=== PATIENT | male | born 1960 | race African-American/Black ===

== ENCOUNTER 2025-09-04 09:42 | Outpatient (REF) | payer MEDICARE, OTHER, SELFPAY ==
[2025-09-04 13:09] LABS: MANUAL DIFF FLAG NO
[2025-09-04 13:12] LABS: Hematocrit 44.3 % (42.0-52.0); Hemoglobin 15.1 g/dl (14.0-18.0); Imm Gran Abs Auto 0.01 X10*3/uL (0.00-0.03); Imm Gran Pct Auto 0.2 % (0.0-0.4); Lymphocytes Absolute Auto 2.0 X10*3/uL (1.2-4.9); Mean Corpuscular HGB Conc 34.1 g/dl (31.0-36.0); Mean Corpuscular Hemoglobin 28.3 pg (27.0-33.0); Mean Corpuscular Volume 83.1 fL (80.0-98.0); NRBC Abs Auto 0.000 X10*3/uL (0.0-0.012); NRBC Pct Auto 0.0 /100WBC (0.0-0.2); Platelet Count 263 X10*3/uL (160-400); Red Blood Count 5.33 X10*6/uL (4.60-5.80); White Blood Count 5.2 X10*3/uL (4.8-10.8)
[2025-09-04 13:19] LABS: Appearance Urine Clear; Glucose Urine UA >=1000 mg/dL (Negative); PH 7.0 (5.0-9.0); Specific Gravity - Urine >= 1.030 (1.005-1.025); UMIC TRIGGER UACC YES
[2025-09-04 13:45] LABS: Alanine Aminotransferase 31 U/L (0-40); Albumin Level 5.0 g/dL (3.5-5.0); Alkaline Phosphatase 66 U/L (39-117); Anion Gap 12 (12-20); Aspartate Amino Transferase 21 U/L (5-37); Blood Urea Nitrogen 12 mg/dL (9-16); Calcium 9.8 mg/dL (8.4-10.2); Carbon Dioxide 28 mmol/L (22-29); Chloride 101 mmol/L (96-108); Cholesterol 203 mg/dL (<200); Estimated Glomerular Filt Rate > 60; HDL Cholesterol 47 mg/dL (>40); Magnesium 2.0 mg/dL (1.6-2.6); Potassium 4.3 mmol/L (3.3-5.1); Sodium 137 mmol/L (135-145); Total Protein 7.9 g/dL (6.5-8.0); Triglycerides 120 mg/dL (<150)
[2025-09-04 13:58] LABS: Folate 12.9 ng/mL (> or = 4.0); Vitamin B12 1016 pg/mL (200-900)
[2025-09-04 14:14] LABS: Microalbum/Creatinine Ratio Ur 21.4 ug/mg cr (<30)
[2025-09-05 13:04] LABS: HBS Num1 0.93 mIU/mL (0-7.99); HBsAGNum1 0.47 S/CO (0.00-0.99); HIV Num 1 0.06 S/CO (0.00-0.99); Hepatitis B Surface Antigen Negative (Negative); ~HepC Num1 0.07 S/CO (0.00-0.79); ~Hepatitis B Surface Antibody NONREACTIVE (Nonreactive); ~Hepatitis C Antibody Nonreactive (Nonreactive)
[2025-09-08 12:28] LABS: VITAMIN D (1,25 OH) D3 51 pg/mL; Vit D (1,25-Dihydroxy) Total 51 pg/mL (18-72); Vitamin D (1,25 OH) D2 <8 pg/mL
== END 2025-09-04 09:43 | disposition home or self-care (01) ==
LOC: HO.HKASLDS 09:42
PROVIDERS: PCP Student in an Organized Health Care Education/Training Program; Visit Provider Student in an Organized Health Care Education/Training Program
DX: Z13.9 Encounter for screening, unspecified (principal); I10 Essential (primary) hypertension; R03.0 Elevated blood-pressure reading, without diagnosis of hypertension; Z79.899 Other long term (current) drug therapy
CPT/HCPCS: 36415; 80053; 80061; 81001; 81003; 82043; 82570; 82607; 82652; 82746; 83036; 83735; 84443; 85025; 86706; 86803; 87340; 87389; 99202

== ENCOUNTER 2025-09-04 09:42 | Outpatient (AMB) | payer MEDICARE, OTHER, SELFPAY ==
--- NOTE | 2025-09-04 09:26 | MHC.PC.OV ---
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 History of Present Illness The patient is a 65-year-old male presenting with hypertension management to proceed with cataract surgery. Essential Hypertension: The patient reports a history of elevated blood pressure, first noted during a preoperative physical examination for cataract surgery two weeks ago. Despite receiving high doses of antihypertensive medication during surgery, his blood pressure remained elevated, leading to the postponement of the second eye surgery. He has been prescribed amlodipine 5 mg, which was deemed ineffective, and is now being transitioned to a combination of amlodipine 10 mg and valsartan 160 mg. The patient monitors his blood pressure twice daily, noting higher readings in the evening. 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 Cataract: The patient underwent cataract surgery on the left eye two weeks ago and plans to have the right eye operated on once his blood pressure is controlled. The surgery was delayed due to elevated blood pressure, and he currently experiences differing visual acuity between the eyes. 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 - Substance Use: Denies smoking, drinks alcohol very lightly. Family History: - Denies family history of colon cancer. Review of Systems - Cardiovascular: Denies headaches, dizziness, or dyspnea. 10-point ROS reviewed and negative except as noted in HPI Past Medical History - History of hypertension Health Maintenance - Colon cancer screening discussed with options for colonoscopy or Cologuard test. Physical Exam General: Well-appearing, in no acute distress. Vital signs: Blood pressure is very elevated today at 194/102. HEENT: Normocephalic, atraumatic. PERRLA, EOMI. Conjunctiva clear, sclera anicteric. Oropharynx clear, mucous membranes moist. TMs intact bilaterally. Neck: Supple, no lymphadenopathy, no thyromegaly, no JVD or carotid bruits. Cardiovascular: RRR, normal S1/S2, no murmurs, rubs, or gallops. Peripheral pulses 2+ and symmetric. No edema. Respiratory: Lungs clear to auscultation bilaterally, no wheezes, rales, or rhonchi. Normal effort. Abdomen: Soft, non-tender, non-distended. Normoactive bowel sounds. No hepatosplenomegaly, no masses. MSK: Full range of motion, no joint swelling or deformity. Normal gait. Skin: Warm, dry, intact. No rashes, lesions, or pallor. Neuro: Alert and oriented x3. Cranial nerves II-XII intact. Strength 5/5 throughout. Sensation intact. Reflexes 2+ symmetric. Normal coordination and gait. Psych: Appropriate mood and affect. Normal judgment and insight. Plan 1. Essential Hypertension - Initiate amlodipine 10 mg with valsartan 160 mg to manage blood pressure. - Conduct complete blood count, comprehensive metabolic panel, hemoglobin A1c, lipid panel, and other relevant tests to assess overall health and organ function. - Schedule an electrocardiogram to evaluate cardiac function and potential hypertensive effects on the heart. - Follow-up in two weeks to review test results and blood pressure log. 2. Cataract - Plan to proceed with right eye cataract surgery once blood pressure is controlled. Discussion Notes I discussed with the patient the need to control his blood pressure to proceed with the second cataract surgery. We reviewed the new medication regimen, including amlodipine and valsartan, and the importance of monitoring blood pressure at home. I explained the tests ordered to assess his overall health and the need for an electrocardiogram to evaluate cardiac function. We also discussed colon cancer screening options, and he opted for a colonoscopy. Patient Instructions - Take amlodipine 10 mg with valsartan 160 mg daily as prescribed. - Monitor blood pressure twice daily and record readings in a log. - Schedule and complete the recommended blood tests and electrocardiogram. - Follow up in two weeks to review test results and blood pressure log. - Seek immediate medical attention if experiencing dizziness, headaches, or chest pain. Medical Decision Making The patient's hypertension is poorly controlled, necessitating an adjustment in medication to a combination of amlodipine and valsartan. This approach aims to effectively lower blood pressure to enable the completion of cataract surgery. Diagnostic tests, including blood work and an electrocardiogram, are planned to evaluate the patient's overall health and cardiac function. The goal is to stabilize blood pressure and ensure the patient is fit for surgery, while also addressing preventative care with colon cancer screening. Total time spent caring for the patient today was 30 minutes. This includes time spent before the visit reviewing the chart, time spent documenting, and time spent reviewing laboratory results, diagnostic imaging, medications, performing a medically necessary evaluation, counseling on diagnoses, care coordination, ordering appropriate tests, ordering appropriate medications. FORMERLY [facility], [facility]1983 Medical History (Updated 09/04/25 @ 10:06 by Esdras Singh MD) Hypertension Family History (Updated 09/04/25 @ 09:52 by Elijah Snow MA) Father No problems noted. Mother High blood pressure Diabetes Social History Housing: House Patient Tobacco Use Status: Never used Tobacco service: Yes Current occupational status: retired Cognitive needs: No Hearing needs: No Vision needs: Yes (reading glasses) Questionnaire PHQ-9 Over the last 2 weeks, how often have you been bothered by any of the following problems? 1. Little interest or pleasure in doing things: not at all 2. Feeling down, depressed, or hopeless: not at all 3. Trouble falling or staying asleep, or sleeping too much: not at all 4. Feeling tired or having little energy: not at all 5. Poor appetite or overeating: not at all 6. Feeling bad about yourself - or that you are a failure or have let yourself or your family down: not at all 7. Trouble concentrating on things, such as reading the newspaper or watching television: not at all 8. Moving or speaking so slowly that other people could have noticed. Or the opposite - being so fidgety or restless that you have been moving around a lot more than usual: not at all 9. Thoughts that you would be better off or of hurting yourself in some way: not at all Total score: 0 Source: Developed by Drs. Delta London, Shayla Morris, Edwar Ashford and colleagues, with an educational doc from [employer]. Thrive Questionnaire Date Thrive assessed: 08/28/25 I am a: Patient What is your living situation today?: I have a steady place to live Within the past 12 months, did the food you bought not last and you didn't have the money to get more?: Never true Within the past 12 months, did you worry whether your food would run out before you got money to buy more?: Never true Do you have trouble paying for medicines?: No Do you have trouble getting transportation to medical appointments?: No Do you have trouble paying your heating and electricity bill?: No Do you have trouble taking care of your child, family member or friend?: No Do you have trouble with day-to-day activities such as bathing, preparing meals, shopping, managing finances, etc.?: No Are you currently unemployed and looking for a job?: No Are you interested in more education?: No THRIVE Score: 0 AUDIT C Alcohol Use Questionnaire (AUDIT-C) 1. How often do you have a drink containing alcohol?: Monthly or less 3. How often do you have six or more drinks on one occasion?: Never Total Score: 1 GISELE-7 AMB Questionnaire GISELE-7 Date GISELE - 7 assessed: 09/04/25 Feeling nervous, anxious, or on edge: 0 = Not at all Not being able to stop or control worryin = Not at all Worrying too much about different things: 0 = Not at all Trouble relaxin = Not at all Being so restless that it is hard to sit still: 0 = Not at all Becoming easily annoyed or irritable: 0 = Not at all Feeling afraid as if something awful might happen: 0 = Not at all Total GISEEL-7 score (0-4 normal; 5-9 mild; 10-14 moderate; 15-21 severe): 0 Source: Developed by Drs. Delta London, ShaylaEdwar Lockhart and colleagues, with an educational doc from [employer]. Physical exam (Primary Care) Tobacco/Smoking Status: Tobacco use Status Tobacco use date assessed 09/04/25 09/04/25 09:31 Patient Tobacco Use Status Never used Tobacco 09/04/25 09:31 Thrive Assessment: Date of Thrive Assessment Date Thrive assessed 08/28/25 09/04/25 09:27 Coding Level of Care Code New Pt Level 4 (42236) Diagnoses Hypertension I10 Elevated blood pressure reading R03.0 Assessment & Plan Assessment & Plan (1) Hypertension: Code(s): I10 - Essential (primary) hypertension Category: Medical (2) Elevated blood pressure reading: Code(s): R03.0 - Elevated blood-pressure reading, without diagnosis of hypertension Plan Orders: Orders Complete Blood Count Auto Diff Today Z13.9 - Encounter for screening, unspecified Hemoglobin A1c Today Z13.9 - Encounter for screening, unspecified Lipid Panel Today Z13.9 - Encounter for screening, unspecified Magnesium Today Z13.9 - Encounter for screening, unspecified Vitamin B12 and Folate Today Z13.9 - Encounter for screening, unspecified ECG 12 lead EKG Today I10 - Essential (primary) hypertension Comprehensive Met. Panel Today Z13.9 - Encounter for screening, unspecified Hepatitis B Surface Antibody Today Z13.9 - Encounter for screening, unspecified Hepatitis B Surface Antigen Today Z13.9 - Encounter for screening, unspecified Hepatitis C Antibody Today Z13.9 - Encounter for screening, unspecified HIV Ab/Ag Today Z13.9 - Encounter for screening, unspecified TSH reflex Free T4 Today Z13.9 - Encounter for screening, unspecified UA CC w/rflx Micro + Cult Today Z13.9 - Encounter for screening, unspecified Vitamin D 1,25 dihydroxy Today Z13.9 - Encounter for screening, unspecified Microalbumin, Random (w Creat) Today Z13.9 - Encounter for screening, unspecified Referrals Cologuard Test Z12.11 - Encounter for screening for malignant neoplasm of colon, Z12.12 - Encounter for screening for malignant neoplasm of rectum Medications: New amlodipine-valsartan 10-160 mg 1 tab PO DAILY 90 tabs 0RF
[2025-09-04 09:49] VITALS: BP 194/102; PULSE 80; RESP 16; TEMP 36.6; O2SAT 98; BMI 24.2
== END 2025-09-04 10:18 | disposition home or self-care (01) ==
LOC: HO.HMCFMS 09:43
PROVIDERS: Visit Provider Student in an Organized Health Care Education/Training Program
DX: I10 Essential (primary) hypertension (principal); R03.0 Elevated blood-pressure reading, without diagnosis of hypertension

== ENCOUNTER 2025-09-18 13:48 | Outpatient (AMB) | payer MEDICARE, OTHER, SELFPAY ==
[2025-09-18 13:50] VITALS: BP 174/93; PULSE 80; TEMP 36.7; O2SAT 98; BMI 24.3
--- NOTE | 2025-09-18 13:50 | A.OFFPC_ITS ---
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 Accompanied by: Self / Same As Patient Allergies No Known Allergies Allergy (Verified 09/18/25 13:51) Medication List - Last Reconciled 09/18/25 by Esdras Singh MD amlodipine-valsartan 10-160 mg 1 tab PO DAILY empagliflozin (Jardiance) 10 mg PO DAILY ketorolac 0.5% 1 drp ophthalmic (eye) BID metformin 1,000 mg PO BID rosuvastatin 20 mg PO DAILY Tobacco use date assessed: 09/18/25 Fall risk assessment: No Falls in past year Last assessed Fall Risk: 09/18/25 Dental Screening Dental Screen Date: 09/18/25 Did you have a dental visit in the last 12 months?: Yes Did you have a dental problem in the last 6 months where you did not have access to dental care?: No Was dental information given to patient?: Patient has dentist HPI HPI Comments History of Present Illness Details History of Present Illness The patient is a 65-year-old male presenting for a follow-up visit to review lab results. Type 2 diabetes mellitus: The patient was newly diagnosed with type 2 diabetes mellitus based on laboratory results showing a hemoglobin A1c of 11.3% and a random glucose of 286 mg/dL. Hyperlipidemia: Recent laboratory tests revealed a total cholesterol level of 203 mg/dL and an LDL cholesterol level of 132 mg/dL. Hypertension: The patient has a history of elevated blood pressure and monitors his readings at home. His self-reported home measurements have been variable, with readings of 155, 152, 137, 139, 143, 162, 167, and 140, though he has also observed lower unrecorded readings such as 111 and 117. Social History: - Nutrition: The patient will be referre d to a business information consultant to discuss dietary changes for managing type 2 diabetes. Diagnostic Results: - Complete Blood Count (CBC): Normal, wi th no evidence of anemia, infection, or platelet problems. - Comprehensive Metabolic Panel (CMP): S odium, potassium, and renal function were normal. - Random Glucose: 286 mg/dL. - Hemoglobin A1c: 11.3%. - Lipid Panel: Total cholesterol 203 mg/ dL, LDL cholesterol 132 mg/dL. - Vitamin D: Normal. - Vitamin B12: Elevated at 1,060 pg/mL. - Folate: Normal. - Thyroid function tests: Normal. - Urinalysis: Normal. - Infectious Disease Screen: Negative fo r Hepatitis B, Hepatitis C, and HIV. Past Medical History - Hypertension - Cataracts Health Maintenance - The patient was screened for diabetes, dyslipidemia, and infectious diseases (Hepatitis B, Hepatitis C, HIV). - Lifestyle changes were discussed for d iabetes management, and the patient will be referred to a business information consultant and a clinical nurse educator. - Cardiovascular disease risk reduction was discussed with the initiation of rosuvastatin for its cardioprotective benefits in patients with type 2 diabetes. [facility] Medical History (Updated 09/18/25 @ 13:56 by Esdras Singh MD) Hyperlipidemia Diabetes type 2 Hypertension Family History Father No problems noted. Mother High blood pressure Diabetes Social History Housing: House Patient Tobacco Use Status: Never used Tobacco service: Yes Current occupational status: retired Cognitive needs: No Hearing needs: No Vision needs: Yes (reading glasses) Questionnaire PHQ-9 Over the last 2 weeks, how often have you been bothered by any of the following problems? 1. Little interest or pleasure in doing things: not at all 2. Feeling down, depressed, or hopeless: not at all 3. Trouble falling or staying asleep, or sleeping too much: not at all 4. Feeling tired or having little energy: not at all 5. Poor appetite or overeating: not at all 6. Feeling bad about yourself - or that you are a failure or have let yourself or your family down: not at all 7. Trouble concentrating on things, such as reading the newspaper or watching television: not at all 8. Moving or speaking so slowly that other people could have noticed. Or the opposite - being so fidgety or restless that you have been moving around a lot more than usual: not at all 9. Thoughts that you would be better off or of hurting yourself in some way: not at all Total score: 0 Depression Screening Interpretation: Negative Depression Screening Done: Yes Source: Developed by Drs. Delta London, Shayla Morris, Edwar Ashford and colleagues, with an educational doc from [employer]. Thrive Questionnaire Date Thrive assessed: 09/18/25 I am a: Patient What is your living situation today?: I have a steady place to live Within the past 12 months, did the food you bought not last and you didn't have the money to get more?: Never true Within the past 12 months, did you worry whether your food would run out before you got money to buy more?: Never true Do you have trouble paying for medicines?: No Do you have trouble getting transportation to medical appointments?: No Do you have trouble paying your heating and electricity bill?: No Do you have trouble taking care of your child, family member or friend?: No Do you have trouble with day-to-day activities such as bathing, preparing meals, shopping, managing finances, etc.?: No Are you currently unemployed and looking for a job?: No Are you interested in more education?: No Please select the resources that you would like help with: None Currently or been in a relationship where the following occur: No concerns reported THRIVE Score: 0 AUDIT C Alcohol Use Questionnaire (AUDIT-C) 1. How often do you have a drink containing alcohol?: Monthly or less 3. How often do you have six or more drinks on one occasion?: Never Total Score: 1 GISELE-7 AMB Questionnaire GISELE-7 Date GISELE - 7 assessed: 09/18/25 Feeling nervous, anxious, or on edge: 0 = Not at all Not being able to stop or control worryin = Not at all Worrying too much about different things: 0 = Not at all Trouble relaxin = Not at all Being so restless that it is hard to sit still: 0 = Not at all Becoming easily annoyed or irritable: 0 = Not at all Feeling afraid as if something awful might happen: 0 = Not at all Total GISELE-7 score (0-4 normal; 5-9 mild; 10-14 moderate; 15-21 severe): 0 Source: Developed by Shayla Ballesteros, Edwar Ashford and colleagues, with an educational doc from [employer]. Review of Systems Narrative Review of Systems - Constitutional: Patient reports feeling well. - All other systems reviewed and are negative. 10-point ROS reviewed and negative except as noted in HPI Physical exam (Primary Care) Vital Signs: Last Vital Signs Temp 98.0 F 09/18/25 13:50 Pulse 80 09/18/25 13:50 BP 174/93 H 09/18/25 13:50 Pulse Ox 98 09/18/25 13:50 Oxygen Delivery Method Room Air 09/18/25 13:50 BMI result Body Mass Index 24.3 Tobacco/Smoking Status: Tobacco use Status Tobacco use date assessed 09/18/25 09/18/25 13:52 Patient Tobacco Use Status Never used Tobacco 09/18/25 13:52 PHQ-9: PHQ-9 Score PHQ-9: Total score 0 09/18/25 13:58 Depression Screening Interpretation: Negative Thrive Assessment: Date of Thrive Assessment Date Thrive assessed 09/18/25 09/18/25 13:52 Currently or been in a relationship where the following occur: No concerns reported Narrative Physical Exam General: Well-appearing, in no acute distress. Vital signs: Blood pressure elevated. HEENT: Normocephalic, atraumatic. PERRLA, EOMI. Conjunctiva clear, sclera anicte sangeeta. Oropharynx clear, mucous membranes moist. TMs intact bilaterally. Neck: Supple, no lymphadenopathy, no thyromegaly, no JVD or carotid bruits. Cardiovascular: RRR, normal S1/S2, no murmurs, rubs, or gallops. Peripheral pulses 2+ and symmetric. No edema. Respiratory: Lungs clear to auscultation bilaterally, no wheezes, rales, or rhonchi. Normal effort. Abdomen: Soft, non-tender, non-distended. Normoactive bowel sounds. No hepatosplenomegaly, no masses. MSK: Full range of motion, no joint swelling or deformity. Normal gait. Skin: Warm, dry, intact. No rashes, lesions, or pallor. Neuro: Alert and oriented x3. Cranial nerves II-XII intact. Strength 5/5 throughout. Sensation intact. Reflexes 2+ symmetric. Normal coordination and gait. Psych: Appropriate mood and affect. Normal judgment and insight. Office Procedures Flu Questionnaire Does the patient have a severe egg allergy?: No Does the patient have severe life threatening allergies?: No Does the patient have a fever or illness today?: No Has the patient ever had Guillain-[place] Syndrome?: No Has the patient ever had any past reaction to a flu shot?: No Immunizations Fluarix [id number] (PF) 45 mcg (15 mcg x 3)/0.5 mL IM syringe Performing Provider: Esdras Singh MD Performing Location: [facility] [place] [facility] Documented (not given) by: Pepper Lieberman CMA on 09/18/25 13:59 Reason Not Given: Patient Refused Coding Level of Care Code Est Pt Level 4 (69086) Diagnoses Hypertension I10 Diabetes type 2 E11.9 Hyperlipidemia E78.5 Assessment & Plan Assessment & Plan (1) Hypertension: Code(s): I10 - Essential (primary) hypertension Category: Medical (2) Diabetes type 2: Code(s): E11.9 - Type 2 diabetes mellitus without complications Category: Medical (3) Hyperlipidemia: Code(s): E78.5 - Hyperlipidemia, unspecified Category: Medical Plan Consent The treatment plan, including new medications for diabetes and cholesterol, was discussed with the patient. Potential side effects of metformin, such as nausea and bloating, were explained. The patient was advised to return if these side effects occur. The patient verbally agreed to the proposed treatment plan. Patient was informed and verbally consented to the use of an ambient scribe for clinic note documentation during this visit. Plan 1. Type 2 Diabetes Mellitus - Initiate metformin twice daily with food. - Initiate Jardiance once daily in the morning, starting at a low dose. - The current plan utilizes oral medications as a conservative first step instead of insulin, despite an A1c greater than 9%. - Patient was counseled on potential GI side effects of metformin and advised to follow up if they occur, at which time a switch to an extended-release formulation will be considered. - Referral to be placed for a business information consultant and a clinical nurse educator. - Repeat hemoglobin A1c in three months to assess response to treatment. 2. Hyperlipidemia - Initiate rosuvastatin 20 mg at night. - Statin therapy is indicated for both elevated LDL cholesterol and for cardiovascular protection in a patient with type 2 diabetes. 3. Hypertension - Continue home blood pressure monitoring. - No medication changes will be made at this time to avoid potential side effects such as dizziness and falls. - Follow up in two weeks to reassess blood pressure readings; will consider adding a medication at the next visit if needed. 4. Pre-Operative Evaluation - The patient has an upcoming cataract surgery scheduled for the . - A follow-up visit is scheduled for next Thursday to ensure the patient is cleared for the procedure. Discussion Notes I discussed the patient's new diagnosis of type 2 diabetes, based on a hemoglobin A1c of 11.3%. I explained that while recommendations often suggest insulin for an A1c above 9%, I am opting for a more conservative approach by starting with oral medications, metformin and Jardiance, as I have seen this approach be effective, and it avoids the significant lifestyle change of insulin therapy. I highlighted that Jardiance also provides heart and kidney protection, and that we have room to increase the dose if needed. I also informed him of the new diagnosis of hyperlipidemia, with an LDL of 132, and will be starting rosuvastatin 20 mg, which is also used for cardiovascular protection in diabetics. Regarding his hypertension, I explained that I prefer to continue monitoring his home readings for another two weeks before considering a medication increase, to avoid causing dizziness or falls. We discussed the importance of lifestyle changes, and I am placing referrals to a business information consultant and a clinical nurse educator to provide him with comprehensive support. I reviewed the follow-up plan, which includes an appointment next week to ensure he is cleared for his upcoming cataract surgery, and a repeat of his labs in three months to monitor his A1c. The patient voiced understanding and agreed with the plan. Patient Instructions - Take Metformin twice a day, once in the morning and once at night, with food. - If you get an upset stomach, nausea, or bloating from Metformin, please call the office so we can change the medication. - Take Jardiance once a day in the morning. - Take rosuvastatin (Crestor) 20 mg once a day at night. - Continue to check your blood pressure at home. - You will be contacted by a business information consultant and a clinical nurse educator to help you manage your new diagnosis of diabetes. - You have a follow-up appointment next week on Thursday to check on your blood pressure and prepare for your eye surgery. - You will need to have your blood work repeated in three months. Medical Decision Making The patient is a 65-year-old male who presented for a review of lab results, which revealed a new diagnosis of type 2 diabetes mellitus with a hemoglobin A1c of 11.3% and a random glucose of 286, as well as hyperlipidemia with an LDL of 132. Although the A1c is significantly elevated to a level where insulin is often recommended, I have opted for a more conservative initial approach with dual oral therapy. This decision is based on my clinical experience with achieving good outcomes with oral agents and the goal of avoiding the signific ant lifestyle burden of insulin therapy for the patient at this stage. Metformin was chosen as the cornerstone of therapy, and Jardiance was added for its dual glycemic benefits and its proven cardiovascular and renal protective effects, which are particularly important in this patient population. Given the patient's new diagnosis of diabetes, the goal for his LDL cholesterol is less than 70 mg/dL. His current LDL of 132 necessitates treatment, and rosuvastatin 20 mg was initiated not only for lipid management but also for primary prevention of cardiovascular events. Regarding his hypertension, I am deferring any medication adjustments at this time. Although his in-office blood pressure was elevated, his reported home readings are variable, and I wish to avoid iatrogenic hypotension and its associated risks, such as dizziness and falls. We will reassess his blood pressure in two weeks. The patient is scheduled for cataract surgery, necessitating a prompt follow-up next week for pre-operative clearance. The plan includes referrals to a business information consultant and clinical nurse educator to empower the patient with knowledge and tools for self-management. Treatment efficacy will be monitored by repeating his hemoglobin A1c in three months. Total time spent caring for the patient today was 30 minutes. This includes time spent before the visit reviewing the chart, time spent documenting, and time spent reviewing laboratory results, diagnostic imaging, medications, performing a medically necessary evaluation, counseling on diagnoses, care coordination, ordering appropriate tests, ordering appropriate medications, review of tests performed by other providers, reporting test results with the patient, communication with other healthcare providers. Orders: Orders Influenza [id number] Immunization Today Z23 - Encounter for immunization Referrals Nurse Navigator Referral E11.9 - Type 2 diabetes mellitus without complications Nutrition/Dietitian Referral E11.9 - Type 2 diabetes mellitus without comp lications Medications: New rosuvastatin 20 mg PO DAILY 90 tabs 0RF empagliflozin (Jardiance) 10 mg PO DAILY 90 tabs 0RF metformin 1,000 mg PO BID 180 tabs 0RF
== END 2025-09-18 14:15 | disposition home or self-care (01) ==
LOC: HO.HMCFMS 13:49
PROVIDERS: Visit Provider Student in an Organized Health Care Education/Training Program
DX: I10 Essential (primary) hypertension (principal); E11.9 Type 2 diabetes mellitus without complications; E78.5 Hyperlipidemia, unspecified; Z23 Encounter for immunization

== ENCOUNTER → 2025-09-18 13:48 | Outpatient (BNVA) | payer MEDICARE, OTHER, SELFPAY | PROVIDERS: Visit Provider Student in an Organized Health Care Education/Training Program | DX: I10 Essential (primary) hypertension (principal); E11.9 Type 2 diabetes mellitus without complications; E78.5 Hyperlipidemia, unspecified; Z28.21 Immunization not carried out because of patient refusal; Z13.31 Encounter for screening for depression; Z13.39 Encounter for screening examination for other mental health and behavioral disorders | CPT/HCPCS: 90471; 96127; 99212 ==

== ENCOUNTER 2025-09-27 15:20 | Outpatient (AMB) | payer MEDICARE, OTHER, SELFPAY ==
[2025-09-27 15:20] VITALS: BP 166/92; PULSE 93; RESP 16; TEMP 36.6; O2SAT 97; BMI 24.3
--- NOTE | 2025-09-27 15:20 | A.OFFPC_ITS ---
Vital Signs 09/27/25 15:20 09/27/25 16:38 Height 5 ft 11.65 in Weight 177 lb 4 oz BMI 24.3 BP 166/92 H 133/80 Blood Pressure Location Lt brachial Rt brachial Position Sitting Sitting Respiration 16 Pulse 93 Pulse Source Pulse Oximeter Temp 97.9 F Temp Source Oral Pulse Oximetry (%) 97 Oxygen Delivery Method Room Air Intake Visit Reasons: 1 wk Allergies No Known Allergies Allergy (Verified 09/27/25 15:23) Medication List - Last Reconciled 09/28/25 by Esdras Singh MD amlodipine-valsartan 10-160 mg 1 tab PO DAILY empagliflozin (Jardiance) 10 mg PO DAILY ketorolac 0.5% 1 drp ophthalmic (eye) BID metformin 1,000 mg PO BID rosuvastatin 20 mg PO DAILY Tobacco use date assessed: 09/18/25 Dental Screening Dental Screen Date: 09/18/25 HPI HPI Comments History of Present Illness Details History of Present Illness The patient is a 65-year-old male presenting for management of chronic conditions, including hypertension and diabetes, and for pre-operative clearance for cataract surgery. Essential Hypertension: The patient has a history of hypertension with prior high readings, including 174 and high 155s. His blood pressure is currently well-controlled on his medication regimen, and he denies any associated symptoms such as dizziness. Type 2 Diabetes Mellitus: The patient is being treated for diabetes with Jardiance and metformin with the goal of lowering his A1c. Cataract: The patient is scheduled for cataract surgery this coming Thursday and is seeking pre-operative clearance. Medications: - Unspecified blood pressure medication - Jardiance for diabetes - Metformin for diabetes Diagnostic Results: - Blood pressure: Well-controlled. Past Medical History - Hypertension with previous readings of 174 and high 155s - Type 2 diabetes mellitus - Cataracts Health Maintenance - Pre-operative clearance provided for s cheduled cataract surgery. [facility] Medical History (Updated 09/18/25 @ 13:56 by Esdras Singh MD) Hyperlipidemia Diabetes type 2 Hypertension Family History Father No problems noted. Mother High blood pressure Diabetes Social History Housing: House Patient Tobacco Use Status: Never used Tobacco service: Yes Current occupational status: retired Cognitive needs: No Hearing needs: No Vision needs: Yes (reading glasses) Questionnaire Thrive Questionnaire Date Thrive assessed: 08/28/25 I am a: Patient What is your living situation today?: I have a steady place to live Within the past 12 months, did the food you bought not last and you didn't have the money to get more?: Never true Within the past 12 months, did you worry whether your food would run out before you got money to buy more?: Never true Do you have trouble paying for medicines?: No Do you have trouble getting transportation to medical appointments?: No Do you have trouble paying your heating and electricity bill?: No Do you have trouble taking care of your child, family member or friend?: No Do you have trouble with day-to-day activities such as bathing, preparing meals, shopping, managing finances, etc.?: No Are you currently unemployed and looking for a job?: No Are you interested in more education?: No Please select the resources that you would like help with: None Currently or been in a relationship where the following occur: No concerns reported THRIVE Score: 0 GISELE-7 AMB Questionnaire GISELE-7 Date GISELE - 7 assessed: 09/18/25 Source: Developed by Drs. Delta London, Shayla Morris, Edwar Ashford and colleagues, with an educational doc from [employer]. Review of Systems Narrative Review of Systems - Eyes: Reports cataracts. - Neurological: Denies dizziness. 10-point ROS reviewed and negative except as noted in HPI Physical exam (Primary Care) Vital Signs: Last Vital Signs Temp 97.9 F 09/27/25 15:20 Pulse 93 09/27/25 15:20 Resp 16 09/27/25 15:20 BP 133/80 09/27/25 16:38 Pulse Ox 97 09/27/25 15:20 Oxygen Delivery Method Room Air 09/27/25 15:20 BMI result Body Mass Index 24.3 Tobacco/Smoking Status: Tobacco use Status Tobacco use date assessed 09/18/25 09/27/25 15:21 Patient Tobacco Use Status Never used Tobacco 09/27/25 15:21 Thrive Assessment: Date of Thrive Assessment Date Thrive assessed 08/28/25 09/27/25 15:21 Currently or been in a relationship where the following occur: No concerns reported Narrative Physical Exam General: Well-appearing, in no acute distress. Vital signs: Blood pressure improved from previous high readings of 174 and 155. HEENT: Normocephalic, atraumatic. PERRLA, EOMI. Conjunctiva clear, sclera anicteric. Oropharynx clear, mucous membranes moist. TMs intact bilaterally. Neck: Supple, no lymphadenopathy, no thyromegaly, no JVD or carotid bruits. Cardiovascular: RRR, normal S1/S2, no murmurs, rubs, or gallops. Peripheral pulses 2+ and symmetric. No edema. Respiratory: Lungs clear to auscultation bilaterally, no wheezes, rales, or rhonchi. Normal effort. Abdomen: Soft, non-tender, non-distended. Normoactive bowel sounds. No hepatosplenomegaly, no masses. MSK: Full range of motion, no joint swelling or deformity. Normal gait. Skin: Warm, dry, intact. No rashes, lesions, or pallor. Neuro: Alert and oriented x3. Cranial nerves II-XII intact. Strength 5/5 throughout. Sensation intact. Reflexes 2+ symmetric. Normal coordination and gait. Psych: Appropriate mood and affect. Normal judgment and insight. Coding Level of Care Code Est Pt Level 3 (26094) Diagnoses Hypertension I10 Diabetes type 2 E11.9 Assessment & Plan Assessment & Plan (1) Hypertension: Code(s): I10 - Essential (primary) hypertension Category: Medical (2) Diabetes type 2: Code(s): E11.9 - Type 2 diabetes mellitus without complications Category: Medical Plan Consent Patient was informed and verbally consented to the use of an ambient scribe for clinic note documentation during this visit. Plan 1. Essential Hypertension - The patient's blood pressure is well-controlled. - Continue current antihypertensive regimen. 2. Type 2 Diabetes Mellitus - Continue treatment with Jardiance and metformin with a goal to lower A1c. - A nurse referral has been placed and she will speak with the patient today. 3. Cataract - The patient is medically cleared for his scheduled cataract surgery this Thursday. - Pre-operative clearance documentation will be sent to the surgical team. Discussion Notes I reviewed the patient's blood pressure, which is excellent on his current regimen, and recommended he continue with it. I confirmed he is not experiencing any side effects like dizziness. I informed the patient that he is medically cleared for his upcoming cataract surgery and will provide the necessary paperwork to the surgical team. We also discussed his diabetes management, which includes Jardiance and metformin, with the goal of lowering his A1c. I have arranged for a nurse to follow up with him today regarding a prior referral. Patient Instructions - Continue taking your blood pressure medication as prescribed. - Continue taking Jardiance and metformin for your diabetes. - You are cleared for your cataract surgery scheduled for this Thursday. - My office will send the required information to the surgery schedulers. - A nurse will be coming in to speak with you today. Medical Decision Making The patient is a 65-year-old male here for chronic disease management and pre- operative clearance for cataract surgery. His hypertension is well-controlled on his current regimen, with previous high readings now resolved. He denies adverse effects, such as dizziness. Given his stable blood pressure, he is deemed a suitable candidate for his scheduled cataract surgery, and clearance will be provided. His diabetes management with Jardiance and metformin will continue with the goal of improving his A1c. A nurse consultation has been arranged to support this. Total time spent caring for the patient today was 20 minutes. This includes time spent before the visit reviewing the chart, time spent documenting, and time spent reviewing laboratory results, diagnostic imaging, medications, performing a medically necessary evaluation, counseling on diagnoses, care coordination.
[2025-09-27 16:38] VITALS: BP 133/80
== END 2025-09-27 16:05 | disposition home or self-care (01) ==
LOC: HO.HMCFMS 15:21
PROVIDERS: PCP Student in an Organized Health Care Education/Training Program; Visit Provider Student in an Organized Health Care Education/Training Program
DX: I10 Essential (primary) hypertension (principal); E11.9 Type 2 diabetes mellitus without complications

== ENCOUNTER → 2025-09-27 15:20 | Outpatient (BNVA) | payer MEDICARE, OTHER, SELFPAY | PROVIDERS: PCP Student in an Organized Health Care Education/Training Program; Visit Provider Student in an Organized Health Care Education/Training Program | DX: E11.9 Type 2 diabetes mellitus without complications (principal); I10 Essential (primary) hypertension; H26.9 Unspecified cataract; Z79.84 Long term (current) use of oral hypoglycemic drugs; Z71.89 Other specified counseling | CPT/HCPCS: 99211; 99212 ==